=== PATIENT | male | born 1995 | race Two or more races ===

== ENCOUNTER → 2020-01-22 | Emergency (ER) | payer OTHER ==
[~2020-01-22] VITALS: Ht 177.8 cm; Wt 94.8 kg
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
[2020-01-22 17:14] VITALS: BP 136/78
--- NOTE | 2020-01-22 17:16 | NUR ---
unable to depart in the sysytem
== END ==
LOC: ER 20:13
DX: R52 Pain, unspecified (principal)